=== PATIENT | male | born 1935 | race Caucasian/White ===

== ENCOUNTER → 2016-08-16 08:00 | Outpatient (CLI) | payer MEDICARE ==
[2016-02-23 13:17] VITALS: BMI 23.3
[~2016-08-16 08:00] MED LIST: ARTHRITIS MED; DEXILANT60 MG PO; FISH OIL 1,0001 CA1 PO; FLOMAX0.4 MG PO; GARLIC1 CAP; GLUCOSAMINE & C1 CAP PO; HYDROCODONE-APA1 TAB PO; IBUPROFEN200 MG PO; MULTIPLE VITAMI1 TA1 PO; OMEPRAZOLE40 MG PO; PERCOCET 10/3251 TA1 PO; PHENERGAN25 M1 PO; PRILOSEC20 MG PO; PROSCAR5 MG PO; REGLAN10 MG PO; SAW PALMETTO450 MG PO; VITAMIN D31000 UNIT PO; ZOCOR20 MG PO; ZOFRAN ODT4 MG/UDTAB PO
== END | disposition home or self-care (01) ==
LOC: D.RAD 08:00
DX: R13.10 Dysphagia, unspecified (principal); K21.9 Gastro-esophageal reflux disease without esophagitis; K22.4 Dyskinesia of esophagus

== ENCOUNTER → 2016-09-21 12:51 | Outpatient (CLI) | payer MEDICARE ==
[2016-02-23 13:17] VITALS: BMI 23.3
== END | disposition home or self-care (01) ==
LOC: D.RAD 12:51
DX: R13.12 Dysphagia, oropharyngeal phase (principal); K21.0 Gastro-esophageal reflux disease with esophagitis; K22.70 Barrett's esophagus without dysplasia

== ENCOUNTER → 2017-01-24 07:22 | Outpatient (CLI) | payer MEDICARE ==
[2016-02-23 13:17] VITALS: BMI 23.3
== END | disposition home or self-care (01) ==
LOC: D.RAD 01-22 10:30
DX: K21.9 Gastro-esophageal reflux disease without esophagitis (principal); R11.10 Vomiting, unspecified

== ENCOUNTER 2017-11-26 08:49 | Emergency (ER) | payer MEDICARE ==
[~2017-11-26] VITALS: Ht 170.2 cm; Wt 63.6 kg
[2017-11-26 08:54] VITALS: Ht 170.2 cm; Wt 63.6 kg
[2017-11-26 09:46] LABS: BASOPHILS 0.2 % (0-2); EOSINOPHILS 0.4 % (0-7); HEMATOCRIT 41.8 % (42.0-54.0); HEMOGLOBIN 13.7 g/dL (13.5-17.5); IMMATURE GRANULOCYTES 0.2 % (0-5); LYMPHOCYTES 16.1 % (15-50); MCH 29.8 pg (26.0-34.0); MCHC 32.8 g/dL (31.0-37.0); MCV 90.9 fL (80.0-100.0); MEAN PLATELET VOLUME 9.6 fL (7.4-10.4); MONOCYTES 9.5 % (2-11); NEUTROPHILS 73.6 % (40-80); PLATELET COUNT 204 10x3/uL (130-400); RDW 12.5 % (11.5-14.5); WBC 4.7 10x3/uL (4.8-10.8)
[2017-11-26 09:56] LABS: COLOR YELLOW (YELLOW)
[2017-11-26 09:57] LABS: APPEARANCE CLEAR (CLEAR); BILIRUBIN NEGATIVE (NEGATIVE); GLUCOSE NEGATIVE (NEGATIVE); KETONE NEGATIVE (NEGATIVE); NITRITE NEGATIVE (NEGATIVE); PROTEIN NEGATIVE (NEGATIVE); UROBILINOGEN NORMAL (NORMAL)
[2017-11-26 10:11] LABS: ALBUMIN 3.7 g/dL (3.4-5.0); ALKALINE PHOSPHATASE 78 U/L (46-116); ALT (SGPT) 23 U/L (10-68); CALC OSMOLALITY 276 mosm/kg (275-300); CALCIUM 8.9 mg/dL (8.5-10.1); CHLORIDE - SERUM 103 mmol/L (98-107); CREATININE - SERUM 0.8 mg/dL (0.6-1.3); GLUCOSE 98 mg/dL (74-106); POTASSIUM - SERUM 4.4 mmol/L (3.5-5.1); SODIUM 139 mmol/L (136-145); UREA NITROGEN 9 mg/dL (7-18); eGFR NON AFRICAN AMERICAN > 90 mL/min (90-120)
[2017-11-26] MEDS ORDERED: VIBRAMYCIN 100100 MG PO (10:30)
[2017-11-26 10:49] VITALS: BP 135/74
== END 2017-11-26 10:46 | disposition home or self-care (01) ==
LOC: D.ER 08:49
PROVIDERS: Family Medicine
DX: R50.9 Fever, unspecified (principal); S20.469A Insect bite (nonvenomous) of unspecified back wall of thorax, initial encounter; W57.XXXA Bitten or stung by nonvenomous insect and other nonvenomous arthropods, initial encounter; Y93.9 Activity, unspecified; Y92.89 Other specified places as the place of occurrence of the external cause

== ENCOUNTER → 2018-07-26 09:53 | Outpatient (CLI) | payer MEDICARE ==
[2017-11-26 08:54] VITALS: BMI 21.9
[~2018-07-26 09:53] MED LIST changes: +VIBRAMYCIN 100100 MG PO
== END | disposition home or self-care (01) ==
LOC: D.RAD 09:53
DX: K63.5 Polyp of colon (principal); R19.4 Change in bowel habit; R14.3 Flatulence; R14.0 Abdominal distension (gaseous)

== ENCOUNTER → 2019-01-16 09:33 | Outpatient (CLI) | payer MEDICARE ==
[2017-11-26 08:54] VITALS: BMI 21.9
== END | disposition home or self-care (01) ==
LOC: D.RAD 09:33
PROVIDERS: ATTEND Internal Medicine Gastroenterology
DX: K21.9 Gastro-esophageal reflux disease without esophagitis (principal)

== ENCOUNTER 2019-12-25 10:47 | Emergency (ER) | payer MEDICARE ==
[~2019-12-25] VITALS: Ht 170.2 cm; Wt 63.6 kg
[2019-12-25 10:54] VITALS: BP 138/79; Ht 170.2 cm; Wt 63.6 kg
[2019-12-25] MEDS ORDERED: FAMOTIDINE10 MG (10:56)
[2019-12-25] MEDS ORDERED: CYCLOBENZAPRINE10 MG PO (11:35)
== END 2019-12-25 11:42 | disposition home or self-care (01) ==
LOC: D.ER 10:47
DX: S39.012A Strain of muscle, fascia and tendon of lower back, initial encounter (principal); K21.9 Gastro-esophageal reflux disease without esophagitis; E78.5 Hyperlipidemia, unspecified; X50.0XXA Overexertion from strenuous movement or load, initial encounter; Y93.9 Activity, unspecified; Y92.9 Unspecified place or not applicable

== ENCOUNTER 2019-12-28 15:01 | Emergency (ER) | payer MEDICARE ==
[~2019-12-28] VITALS: Ht 170.2 cm; Wt 63.6 kg
[~2019-12-28 15:01] MED LIST changes: +CYCLOBENZAPRINE10 MG PO; +FAMOTIDINE10 MG
[2019-12-28 15:20] VITALS: Ht 170.2 cm; Wt 63.6 kg
[2019-12-28] MEDS ORDERED: METHOCARBAMOL500 MG PO (18:40)
[2019-12-28 19:02] VITALS: BP 128/78
== END 2019-12-29 01:29 | disposition home or self-care (01) ==
LOC: D.ER 15:01
DX: M54.5 Low back pain (principal); G89.29 Other chronic pain; K21.9 Gastro-esophageal reflux disease without esophagitis; E78.5 Hyperlipidemia, unspecified